=== PATIENT | female | born 1965 | race American Indian/Alaskan Native ===

== ENCOUNTER 2020-03-05 07:52 | Emergency (ER) | payer BC ==
--- NOTE | 2020-03-05 09:08 | XRay Report ---
CHEST 2 VIEWS INDICATION / CLINICAL INFORMATION: cough/fever. COMPARISON: None available. FINDINGS: SUPPORT DEVICES: None. HEART / MEDIASTINUM: No significant abnormality. LUNGS / PLEURA: Subtle, subsegmental opacity overlying the posterior/inferior lungs on lateral view. No significant effusion. No pneumothorax. ADDITIONAL FINDINGS: No significant additional findings. IMPRESSION: 1. Subtle airspace opacity in the lung bases on lateral view could represent developing pneumonia. Re commend clinical correlation and continued follow-up. Signer Name: Ger Champion MD Signed: 03/05/2020 9:04 AM Workstation Name: [id number]
[2020-03-05] MEDS ORDERED: cefTRIAXone/NS 1 GM/50 ML 1 GM/50 ML BAG IV ONE (10:26)
--- NOTE | 2020-03-05 10:32 | Emergency Department Report ---
HPI - General Chief Complaint: Dyspnea/Respdistress Time Seen by Provider: 03/05/20 10:11 - HPI HPI: Room 24 The patient is a 54-year-old male present with a chief complaint of fatigue and shortness of breath. Patient states her symptoms began 4 days ago with feeling fatigue and short of breath mostly with exertion. Patient admits to an occasional rare cough that is sometimes productive of yellow sputum. Patient also admits to subjective fever. Patient states she had an episode of diarrhea at the onset of her symptoms and a small episode today. Patient denies nausea vomiting. Patient denies rhinorrhea. Patient denies any known contact with confirmed Covid cases. When asked how she is feeling right now the patient states she feels "okay." ED Past Medical Hx - Past Medical History Previous Medical History?: Yes Hx Hypertension: Yes - Surgical History Past Surgical History?: No - Family History Family history: no significant - Social History Smoking Status: Never Smoker Substance Use Type: None (Denies illicit drug use) - Medications Home Medications: Home Medications Medication Instructions Recorded Confirmed Last Taken Type Famotidine [Pepcid] 20 mg PO BID #60 tablet 05/21/15 03/05/20 Unknown Rx amLODIPine 5 mg PO DAILY #30 tab 05/21/15 03/05/20 Unknown Rx Cyclobenzaprine [Flexeril] 10 mg PO TID PRN #20 tablet 12/08/15 03/05/20 Unknown Rx Ibuprofen [Motrin 800 MG tab] 800 mg PO Q8HR PRN #30 tablet 12/08/15 03/05/20 Unknown Rx Albuterol Mdi (or & Nicu Only) 2 puff IH QID PRN #8.5 gram 03/05/20 Unknown Rx [ProAir HFA Inhaler] levoFLOXacin [Levaquin] 750 mg PO QDAY #10 tablet 03/05/20 Unknown Rx ED Review of Systems ROS: Stated complaint: FATIGUE, SOB, COVID TEST Other details as noted in HPI Constitutional: fever (Subjective) Eyes: denies: eye pain ENT: denies: congestion Respiratory: cough, shortness of breath, SOB with exertion Cardiovascular: dyspnea on exertion Endocrine: no symptoms reported Gastrointestinal: diarrhea. denies: nausea, vomiting Genitourinary: denies: dysuria Musculoskeletal: denies: back pain Neurological: denies: headache Physical Exam - Physical Exam Vital Signs: Vital Signs 03/05/20 03/05/20 03/05/20 08:25 09:59 10:00 Temperature 99.1 F Pulse Rate 103 H 98 H Respiratory 18 24 19 Rate Blood Pressure 152/90 142/80 [Right] O2 Sat by Pulse 98 100 100 Oximetry Physical Exam: GENERAL: The patient is well-developed well-nourished female lying on stretcher not appearing to be in acute distress. [] HEENT: Normocephalic. Atraumatic. Extraocular motions are intact. Patient has moist mucous membranes. NECK: Supple. Trachea midline CHEST/LUNGS: Faint occasional left base crackles. There is no respiratory distress noted. HEART/CARDIOVASCULAR: Regular. There is no tachycardia. There is no gallop rub or murmur. ABDOMEN: Abdomen is soft, nontender. Patient has normal bowel sounds. There is no abdominal distention. SKIN: There is no rash. There is no edema. There is no diaphoresis. NEURO: The patient is awake, alert, and oriented. The patient is cooperative. The patient has normal speech MUSCULOSKELETAL: There is no evidence of acute injury. ED Course Vital Signs 03/05/20 03/05/20 03/05/20 08:25 09:59 10:00 Temperature 99.1 F Pulse Rate 103 H 98 H Respiratory 18 24 19 Rate Blood Pressure 152/90 142/80 [Right] O2 Sat by Pulse 98 100 100 Oximetry - Reevaluation(s) Reevaluation #1: 03/05/20 14:00 Walking SPO2 97% on room air. ED Medical Decision Making - Lab Data Result diagrams: 03/05/20 11:12 03/05/20 11:12 - Radiology Data Radiology results: report reviewed (Chest x-ray), image reviewed (Chest x-ray) interpreted by me: Chest x-ray-faint opacity/infiltrate right costophrenic angle. No foreign body seen. No pneumothorax Findings [facility] [address] [place] [address] XRay Report Signed Patient: ELYSSA DIXON MR#: [id number] 34 : 1965 Acct:[id number] Age/Sex: 54 / F ADM Date: 03/05/20 Loc: ED Attending Dr: Ordering Physician: VALENCIA WOODRUFF Date of Service: 03/05/20 Procedure (s): XR chest routine 2V Accession Number(s): [id number] cc: VALENCIA WOODRUFF Fluoro Time In Minutes: CHEST 2 VIEWS INDICATION / CLINICAL INFORMATION: cough/fever. COMPARISON: None available. FINDINGS: SUPPORT DEVICES: None. HEART / MEDIASTINUM: No significant abnormality. LUNGS / PLEURA: Subtle, subsegmental opacity overlying the posterior/inferior lungs on lateral view. No significant effusion. No pneumothorax. ADDITIONAL FINDINGS: No significant additional findings. IMPRESSION: 1. Subtle airspace opacity in the lung bases on lateral view could represent developing pneumonia. Recommend clinical correlation and continued follow-up. Signer Name: Ger Champion MD Signed: 03/05/2020 9:04 AM Workstation Name: [id number] Transcribed By: Dictated By: GER CHAMPION III Electronically Authenticated By: GER CHAMPION III Signed Date/Time: 03/05/20903 DD/ 9 TD/TT: - Differential Diagnosis Pneumonia, bronchitis, COVID-19, CHF Critical care attestation.: If time is entered above; I have spent that time in minutes in the direct care of this critically ill patient, excluding procedure time. ED Disposition Clinical Impression: Pneumonia, Shortness of breath, Suspected 2019 novel coronavirus infection Disposition: DC-01 TO HOME OR SELFCARE Is pt being admited?: No Does the pt Need Aspirin: No Condition: Stable Instructions: Bacterial Pneumonia (ED), Community-Acquired Pneumonia, Adult Additional Instructions: You are to quarantine at home until resolution of your symptoms and you are cleared by physician. Return to the emergency department should you develop worsening symptoms, shortness of breath, inability to tolerate food or liquids, high fever or any other concerns Prescriptions: levoFLOXacin [Levaquin] 750 mg PO QDAY #10 tablet Albuterol Mdi (or & Nicu Only) [ProAir HFA Inhaler] 2 puff IH QID PRN #8.5 gram PRN Reason: Shortness Of Breath Referrals: PRIMARY CARE, [Primary Care Provider] - 3-5 Days Time of Disposition: 14:03
[2020-03-05] MEDS ORDERED: AZITHROMYCIN 500 MG in SODIUM CHLORIDE 0.9% 250ML 250 ML IV ONE (11:00)
[2020-03-05 11:47] LABS: Basophils # (Auto) 0.1 K/mm3 (0.0-0.1); Basophils % (Auto) 1.1 % (0.0-1.8); Eosinophils % (Auto) 0.1 % (0.0-4.3); Hemoglobin 14.2 gm/dl (10.1-14.3); Lymphocytes # (Auto) 1.6 K/mm3 (1.2-5.4); Lymphocytes % (Auto) 22.1 % (13.4-35.0); Mean Corpuscular HGB Conc 33 % (30-34); Mean Corpuscular Volume 86 fl (79-97); Monocytes # (Auto) 0.5 K/mm3 (0.0-0.8); Monocytes % (Auto) 7.2 % (0.0-7.3); Platelet Count 169 K/mm3 (140-440); Red Blood Count 4.99 M/mm3 (3.65-5.03); Red Cell Distribution Width 14.3 % (13.2-15.2)
[2020-03-05 11:48] LABS: Bilirubin,Urine NEG (Negative); Blood,Urine NEG (Negative); Color,Urine Amber (Yellow); Mucus,Urine 2+ /HPF
[2020-03-05 11:49] LABS: Protein,Urine >500 mg/dL (Negative)
[2020-03-05 12:03] LABS: Alanine Aminotransferase 19 units/L (7-56); Blood Urea Nitrogen 7 mg/dL (7-17); Calcium 9.5 mg/dL (8.4-10.2); Hemolysis Index 12
[2020-03-05 12:11] LABS: BUN/Creatinine Ratio 10
[2020-03-05] MEDS ORDERED: POTASSIUM CHLORIDE ER 20 MEQ TAB PO ONE (12:35)
[2020-03-05 12:44] VITALS: BP 157/91
--- NOTE | 2020-03-06 16:06 | Emergency Department Report ---
Blank Doc - Documentation Documentation: I was informed by charge nurse of positive blood cultures. Blood cultures grew out gram-positive cocci in clusters 1 out of 2 bottles. I reviewed the patient's chart. Patient was treated for suspected COVID-19 and community- acquired pneumonia. I reviewed vital signs and labs. Patient appears to be low risk for bacteremia. I suspect contaminant as the cause of the positive blood culture. Patient is on antibiotics. I attempted to reach patient went to phone numbers. Attempts to contact the patient were unsuccessful. No further action currently needed at this time.
== END 2020-03-05 14:29 | disposition home or self-care (01) ==
LOC: ED 07:52
DX: J18.9 Pneumonia, unspecified organism (principal); R06.02 Shortness of breath; I10 Essential (primary) hypertension; Z20.828 Contact with and (suspected) exposure to other viral communicable diseases; Z79.899 Other long term (current) drug therapy
CPT/HCPCS: 36415; 71046; 80053; 81001; 82140; 83880; 84484; 85025; 87040; 87086; 93005; 96365; 96366; 96368; 99284; J0456; J0696; J7050